=== PATIENT | female | born 1975 | race African-American/Black ===

== ENCOUNTER 2017-03-10 20:01 | Emergency (ER) | payer BC ==
[2017-03-10 20:17] VITALS: RESP 18; TEMP 98.2
--- NOTE | 2017-03-10 21:15 | EDPHY ---
H & P Time Seen by Provider: 03/10/17 20:12 HPI/ROS: 41-year-old female with history of allergies to mold presents complaining of cough, runny nose and nasal congestion that began while she was staying at a hotel in [place] where it was very moldy. She returned today and is concerned that she may have a more serious bronchitis and/or pneumonia secondary to this mold exposure. Review of systems As per HPI General no fever no chills no weakness HEENT no eye pain no eye discharge. No eye redness, no sore throat Respiratory positive cough no shortness of breath Cardiac no chest pain, no peripheral edema GI no abdominal pain, no diarrhea, no constipation, no nausea, no vomiting no flank pain, no hematuria, no dysuria Musculoskeletal no myalgias, no joint pain Heme no easy bruising, no easy bleeding Endo no polyuria, no polydipsia Skin no rashes, no pruritus Neuro no syncope, no dizziness, no headaches Psych is no suicidal ideation, no homicidal ideation Past Medical/Surgical History: Sdi-eowhwtv-aqnneulws diabetes Allergies to mold Social History: Denies alcohol or drug use Smoking Status: Never smoked Physical Exam: 41-year-old female Alert and oriented nontoxic appearance, no acute distress afebrile Atraumatic normocephalic Extraocular muscles intact, anicteric Nares mild yellowish discharge Oropharynx mild erythema no tonsillar swelling no exudate no uvular deviation, tolerating own secretions Neck supple no lymphadenopathy Lungs clear to auscultation bilaterally Heart regular rate and rhythm Abdomen normoactive bowel sounds soft nontender Extremities no cyanosis clubbing or edema Skin no rash Constitutional: Initial Vital Signs Temperature (C) 36.8 C 03/10/17 20:13 Heart Rate 82 03/10/17 20:13 Respiratory Rate 18 03/10/17 20:13 Blood Pressure 99/71 L 03/10/17 20:13 O2 Sat (%) 99 03/10/17 20:13 O2 Delivery Mode Room Air Allergies/Adverse Reactions: Penicillins Allergy (Intermediate, Verified 03/10/17 20:17) Hives Home Medications: Medication Instructions Recorded Metformin HCl 03/10/17 Medical Decision Making ED Course/Re-evaluation: Patient seen and evaluated for cough and cold symptoms secondary she feels to recent mold exposure. Differential diagnosis considered URI, viral syndrome, bronchitis, pneumonia Seasonal allergies Chest x-ray negative for infiltrate Notable scoliosis Impression URI Plan Symptomatic care Follow-up PCP Departure - Departure Disposition: Home, Routine, Self-Care Clinical Impression: Upper respiratory infection Condition: Good Instructions: Upper Respiratory Infection (ED) Referrals: Cris Flanagan MD [Primary Care Provider] - As per Instructions
[2017-03-10 21:21] VITALS: BP 97/66; PULSE 77; O2SAT 100
== END 2017-03-10 21:21 | disposition home or self-care (01) ==
LOC: CED 20:01
DX: J06.9 Acute upper respiratory infection, unspecified (principal); E11.9 Type 2 diabetes mellitus without complications; Z79.84 Long term (current) use of oral hypoglycemic drugs
CPT/HCPCS: 71020-PO

== ENCOUNTER → 2018-09-18 | Outpatient (CLI) | payer BC | LOC: FIMAGING 18:15 | DX: D25.1 Intramural leiomyoma of uterus (principal); Z98.891 History of uterine scar from previous surgery ==